=== PATIENT | male | born 1980 | race Hispanic/Latino ===

== ENCOUNTER 2017-09-08 16:51 | Emergency (ER) | payer BC ==
[2017-09-08 17:05] VITALS: TEMP 99.2
[2017-09-08] MEDS ORDERED: POVIDONE IODINE 10 % 15 ML UD TOP ONE (17:09)
[2017-09-08] MEDS ORDERED: NEOMYCIN-BACITRACIN-POLYMYXIN 0.9 GM UD TOP ONE (17:54)
[2017-09-08] MEDS ORDERED: SULFA/TRIMETH 800/160 (DS) TAB 1 EA TAB PO ONE (18:01)
[2017-09-08] MEDS ORDERED: TETANUS,DIPHTHERIA,PERTUSSIS 1 EA SYG IM ONE (18:01)
[2017-09-08] MEDS ORDERED: HYDROcodone 7.5MG/APAP 325MG 1 EA TAB PO ONE (18:04)
[2017-09-08 18:05] VITALS: BP 115/56
--- NOTE | 2017-09-08 18:05 | ED.PDOC ---
History of Present Illness - General Chief Complaint: Laceration Stated Complaint: laceration to rt leg Time Seen by Provider: 09/08/17 18:00 Source: patient Exam Limitations: no limitations - History of Present Illness Initial Comments: the patient is a 36-year-old male presenting to the emergency room secondary to a 21 cm linear laceration to the lateral aspect of his right calf. The patient was climbing a ladder when he slipped and fell down the ladder hanging his skin on the center middle joint and giving a linear laceration. The laceration does extend down through the scan and the subcutaneous fat and also extends down approximately half inch into the lateral soleus belly on that side. He does appear to be neurovascularly preserved distally. Pulses are intact. He has minorscratches as well from the fall on the foot. He was able to ambulate at the scene. No other significant injuries. Timing/Duration: momentarily Severity: moderate Improving Factors: nothing Worsening Factors: nothing Associated Symptoms: denies symptoms Allergies/Adverse Reactions: Allergies NO KNOWN ALLERGY Allergy (Verified 09/08/17 17:05) Home Medications: Ambulatory Orders Sulfa/Trimeth 800/160 (Ds) Tab [Bactrim DS Tab] 1 ea PO BID #14 tab 09/08/17 Review of Systems - Review of Systems Constitutional: States: no symptoms reported EENTM: States: no symptoms reported Respiratory: States: no symptoms reported Cardiology: States: no symptoms reported Gastrointestinal/Abdominal: States: no symptoms reported Genitourinary: States: no symptoms reported Musculoskeletal: States: see HPI Skin: States: see HPI Neurological: States: no symptoms reported Endocrine: States: no symptoms reported All other Systems: No Change from Baseline Past Medical History (General) - Patient Medical History Hx Seizures: No Hx Asthma: No Hx of COPD: No Hx Cardiac Disorders: No Hx Hypertension: No Hx Diabetes: No Hx Gastroesophageal Reflux: No Hx Cancer: No - Vaccination History Hx Tetanus, Diphtheria Vaccination: No Immunizations Up to Date: Yes - Social History Hx Tobacco Use: No Hx Alcohol Use: Yes - occasionally Hx Substance Use: No Family Medical History - Family History Mother Family History: Unknown Physical Exam - Physical Exam General Appearance: Alert, Comfortable, No apparent distress Eye Exam: bilateral normal Ears, Nose, Throat: hearing grossly normal Neck: full range of motion Respiratory: no respiratory distress, no accessory muscle use Cardiovascular/Chest: normal peripheral pulses, no edema Peripheral Pulses: dorsalis pedis,right: 2+, dorsalis pedis,left: 2+, posterior tibialis,right: 2+, posterior tibialis,left: 2+ Rectal Exam: deferred Back Exam: normal inspection Extremity: normal range of motion, no pedal edema, normal capillary refill 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 After risks and benefits were explained of the repaired the patient did agree to proceed. The wound was irrigated first with 1000 cc of sterile saline with some Betadine added. It was irrigated further a few minutes later with another liter of sterile saline. lidocaine 1% without epinephrine was used 20 cc for local anesthetic. total estimated blood loss is probably 20 cc. 5 [id number] sutures of 3-0 Vicryl were used for reapproximating the lateral edge of the gastrocnemius muscle. Good hemostasis was noted. 24 simple sutures were used of 2-0 Ethilon for reapproximation of the skin. The patient tolerated the procedure well. Antibiotic ointment and an ABD pad were applied. He does need to keep the wound covered with some sort of an absorptive pad and some antibiotic ointment over the next 5 or 6 days to allow for drainage and prevent the wound edges from drying. Sutures need to come out in 10-12 days. He does need to monitor for any evidence of infection. He was given a tetanus shot here today. He was also dosed with Bactrim. He'll be placed on Bactrim twice daily for the next 7 days for prophylactic measures primarily. ER warnings were given for any evidence of any worsening. He does need to take the medication with food otherwise it will cause some stomach upset. Departure - Departure Clinical Impression: Accidental laceration Disposition: Discharge to Home or Self Care Condition: Fair Departure Forms: ED Discharge - Pt. Copy, Patient Portal Self Enrollment Instructions: DI for Laceration Repair, DI for Laceration Repair -- Complex Suture Diet: regular diet Activity: increase activity as tolerated - keep the wound dry for 24 hours. After that washed with an antibacterial soap daily and then redress with an antibiotic ointment and an absorptive dressing. Prescriptions: Sulfa/Trimeth 800/160 (Ds) Tab [Bactrim DS Tab] 1 ea PO BID #14 tab Home Medications: Ambulatory Orders Sulfa/Trimeth 800/160 (Ds) Tab [Bactrim DS Tab] 1 ea PO BID #14 tab 09/08/17 Additional Instructions: the patient is a 36-year-old male presenting to the emergency room secondary to a 21 cm laceration to the lateral aspect of the right calf after falling from a ladder. the wound was sutured closed after a local anesthetic was given and the wound was irrigated copiously. He does need to keep the wound covered with some sort of an absorptive pad and some antibiotic ointment over the next 5 or 6 days to allow for drainage and prevent the wound edges from drying. Sutures need to come out in 10-12 days. He does need to monitor for any evidence of infection. He was given a tetanus shot here today. He was also dosed with Bactrim. He'll be placed on Bactrim twice daily for the next 7 days for prophylactic measures primarily. ER warnings were given for any evidence of any worsening. He does need to take the medication with food otherwise it will cause some stomach upset.
[2017-09-08 18:42] VITALS: O2SAT 94
== END 2017-09-08 18:35 | disposition home or self-care (01) ==
LOC: ER 16:51
DX: S81.811A Laceration without foreign body, right lower leg, initial encounter (principal); Z23 Encounter for immunization; W11.XXXA Fall on and from ladder, initial encounter; Y92.9 Unspecified place or not applicable